=== PATIENT | male | born 1995 | race African-American/Black ===

== ENCOUNTER 2024-10-13 21:35 | Emergency (ER) | payer BC, SELFPAY ==
--- NOTE | ~2024-10-13 | XR_ITS ---
XR finger 5th RT min 2V Ordering provider: Heather Daly MD History: . pain, swelling, eval FB/gas forming . Comparison: None. FINDINGS: BONES: No acute fracture or dislocation. JOINT SPACES: Normal. SOFT TISSUES: No definite radiopaque foreign body is seen. IMPRESSION: No acute osseous abnormality. Reviewed, dictated and finalized at location A.
[2024-10-13 21:43] VITALS: BP 168/87; PULSE 99; RESP 16; TEMP 36.3; O2SAT 98
[2024-10-14 02:42] VITALS: BP 172/109; PULSE 103; RESP 15; O2SAT 97
--- NOTE | 2024-10-14 03:44 | PC.NURSE ---
Pt presents to ED due to swollen and red (R) pinky. Pt states he went to urgent care and was prescribed abx with no relief.
--- OUTSIDE RECORDS SUMMARY | 2024-10-14 04:15 | XMS_ITS | Clinical Summary ---
Author Organization [facility] Address [address] [place] [address] Care Team Providers Care Rotary Soil Stabilizer Operator Name Role Phone Nancy Rae MD Primary Care Provider [phone] Allergies No known active allergies Medications No known medications Active Problems Problem Noted Date Diagnosed Date Routine general medical exam ination at a [facility] care facility 05/13/2020 Assessment & Plan (06/29/2023 3:06 PM PLASTIC MOULD MAKER): Patient uses seatbelt. Blood work was not done. Encouraged exercise on regular basis. Blood work was ordered again. He declined vaccines. Assessment & Plan (06/28/2022 3:20 PM PLASTIC MOULD MAKER): Patient uses seatbelt. He works out on regular basis. He was advised to increase the Cardura in his workup and burn more calories and encouraged to lose weight. Blood work was ordered. Refused flu vaccine. Assessment & Plan (06/25/2021 2:52 PM PLASTIC MOULD MAKER): Patient exercises on regular basis. He does not take flu vaccine. He received Tdap vaccine today. He uses seatbelt. Assessment & Plan (05/13/2020 10:40 AM PLASTIC MOULD MAKER): Discussed seatbelt. Discussed exercise on regular basis for about 30 minutes a day. Discussed safe sex. Will order some blood work. Patient declined influenza vaccine. Patient said that he had HPV vaccine. Gynecomastia 05/13/2020 Assessment & Plan (06/12/2020 10:03 AM PLASTIC MOULD MAKER): Patient most likely has physiological again echo mass T a. He likes surgical removal and will make him a referral to see plastic surgeon for that. Assessment & Plan (05/13/2020 10:39 AM PLASTIC MOULD MAKER): Will obtain ultrasound of the breasts for further evaluation. Will obtain testosterone and prolactin level and TSH . Immunizations Immunization Administration Dates Next Due DTP 03/04/1998 DTaP 02/17/2002,01/25/2001,12/26/1999 ,06/24/1999 HPV, Quadrivalent 02/01/2015 Hep A, Pediatric 07/23/2006,02/17/2002 Hep A, Unspecified 07/23/2006,02/17/2002 Hep B, Adolescent or Pediatric 03/04/1998,1996,1996 HiB 01/25/2001,12/26/1999,06/24/1999 Hib (PRP-T) 01/25/2001,12/26/1999,06/24/1999 IPV 02/17/2002 Influenza, Unspecified 06/29/2023(Deferr ed: Patient Refused),06/29/2022(Deferred: Patient decision),06/25/2021(Deferred: Patient Refused) MMR 01/25/2001,06/24/1999 Meningococcal MCV4P (Menactra) 01/25/2015,2010 OPV 12/26/1999,06/26/1999,03/04/1998 Pneumococcal Conjugate 7-Valent 01/25/2001 Polio, Unspecified 02/17/2002 Tdap 06/25/2021,02/17/2011 Varicella 07/23/2006,09/27/1997 Surgical History Surgery Date Site/Laterality Comments BREAST SURGERY 09/26/2020 Bilateral Excision bilateral gynecomastia COLONOSCOPY 12/17/2021 Family History Medical History Relation Name Comments Seizures Father Hypertension Mother Relation Name Status Comments Father Alive Mother Alive Social History Tobacco Use Types Packs/Day Years Used Date Smoking Tobacco: Never Smokeless Tobacco: Never Alcohol Use Standard Drinks/Week Comments Yes 1 (1 standard drink = 0.6 oz pur e alcohol) socially AUDIT-C Answer Date Recorded Q1: How often do you have a drink containing alc ohol? 2-4 times a month 06/28/2022 Q2: How many drinks containi ng alcohol do you have on a typical day when you are drinking? 1 or 2 06/28/2022 Q3: How often do you have si x or more drinks on one occasion? Never 06/28/2022 PHQ-2 Answer Date Recorded PHQ-2 Total Score (If total score is 3 or more points, staff should administer the PHQ-9) 0 06/28/2022 Personal Safety Answer Date Recorded Getting School Help Needed Not on file 06/28 Sex and Gender Information Value Date Recorded Sex Assigned at Not on file Legal Sex Male 6:21 PM PLASTIC MOULD MAKER Gender Identity Not on file Sexual Orientation Not on file Obstetrics History Last Filed Vital Signs Vital Sign Reading Time Taken Comments Blood Pressure 116/78 06/29/2023 2:09 PM PLASTIC MOULD MAKER Pulse 66 06/29/2023 2:09 PM PLASTIC MOULD MAKER Temperature 36.7 C (98 F) 06/29/2023 2:09 PM PLASTIC MOULD MAKER Respiratory Rate 16 06/29/2023 2:09 PM PLASTIC MOULD MAKER Oxygen Saturation 99% 06/29/2023 2:09 PM PLASTIC MOULD MAKER Inhaled Oxygen Concentration - - Weight 102.3 kg (225 lb 8 oz) 06/29/2023 2:09 PM PLASTIC MOULD MAKER Height 175.3 cm (5' 9 ) 06/29/2023 2:09 PM PLASTIC MOULD MAKER Body Mass Index 33.3 06/29/2023 2:09 PM PLASTIC MOULD MAKER Plan of Treatment Health Maintenance Due Date Last Done Comments Hepatitis C Screening 1996 HPV Vaccines (2 - Male 3-dos e series) 03/01/2015 02/01/2015 Depression Screening 06/28/2023 06/28/2022, 06/25/2021, 06/12/2020, Additional history exists Covid-19 Vaccine (2 - 2023-2 5 season) 2024 09/12/2020 Regular Well Visit/Exam 18-64 06/29/2024, 06/28/2022, 06/25/2021, Additional history exists DTaP/Tdap/Td Vaccine (8 - Td or Tdap) 06/25/2031 06/25/2021, 02/17/2011, 02/17/2002, Additional history exists Hepatitis B Screening Completed 03/04/1998 , 1996, 1996 Pneumococcal vaccine <65 Completed 01/25/2001 Varicella Vaccines Completed 07/23/2006, 09/27/1997 Influenza Vaccine Discontinued Insurance [employer] O[employer] [facility] Care Teams Rotary Soil Stabilizer Operator Relationship Specialty Start Date End Date Nancy Rae MD [facility] [place] [place] [address] PCP - General Internal Medicine 05/08/20
--- OUTSIDE RECORDS SUMMARY | 2024-10-14 04:15 | XMS_ITS | Clinical Summary ---
Author Organization [facility] Address [address] [place] [address] Care Team Providers Care Biopsychologist Name Role Phone Provider, None Primary Care Provider Unavailabl e Medications omeprazole (PriLOSEC) 20 MG CAPSULE DELAYED RELEASE Take 20 mg by mouth. 10/27/2021 Active Immunizations Immunization Administration Dates Next Due DTAP VACCINE 02/17/2002, 1,12/26/1999,06/24 DTP Vaccine 03/04/1998 HIB Vaccine (PRP-T) 01/25/2001,12/26/1999,1998 Hepatitis A Vaccine, Pediatric/adolescent, 2 Dose Schedule 07/23/2006,02/17/2002 Hepatitis A Vaccine,unspecif ied Formulation 07/23/2006 Hepatitis B Vaccine, Pediatric/adolescent 03/04/1998,1996,1996 Hib Vaccine,unspecified Formulation 01/25/2001,0 12/26/1999,06/24/1999 Human Papillomavirus Vaccine (HPV), quadrivalent 02/01/2015 Inactivated Polio Vaccine 02/17/2002 MMR Vaccine 01/25/2001,06/24/1999 Meningococcal Vaccine 01/25/2015,02/17/2011 OPV 12/26/1999,06/26/1999,03/04/1998 Pneumococcal Vaccine Peds - 7 Valent 01/25/2001 Polio Vaccine,unspecified Formulation 02/17/2002 TDAP Vaccine 06/25/2021,02/17/2011 Varicella Vaccine Live 07/23/2006,09/27/1997 Social History Tobacco Use Types Packs/Day Years Used Date Smoking Tobacco: Former Smokeless Tobacco: Never Alcohol Use Standard Drinks/Week Comments Yes 0 (1 standard drink = 0.6 oz pur e alcohol) occasionally Sexually Active Control Partners Comments Yes Sex and Gender Information Value Date Recorded Sex Assigned at Not on file Legal Sex Male 8:05 AM INCOME TAX PREPARER Gender Identity Not on file Sexual Orientation Not on file Last Filed Vital Signs Vital Sign Reading Time Taken Comments Blood Pressure 126/81 12/17/2021 1:36 PM CDT Pulse 81 12/17/2021 1:36 PM CDT Temperature 36.9 C (98.4 F) 12/17/2021 1:36 PM CDT Respiratory Rate 20 07/17/2021 5:17 PM INCOME TAX PREPARER Oxygen Saturation 98% 12/17/2021 1:36 PM CDT Inhaled Oxygen Concentration - - Weight 98.9 kg (218 lb) 12/17/2021 1:36 PM CDT Height 172.7 cm (5' 8 ) 12/17/2021 1:36 PM CDT Body Mass Index 33.15 12/17/2021 1:36 PM CDT Plan of Treatment Health Maintenance Due Date Last Done Comments Hepatitis C Virus (HCV) Screening 1996 Influenza Immunization (#1) 2024 SARS-COV-2 Immunization ( season) 2024 09/12/2020 DTaP/Tdap/Td Immunization (8 - Td or Tdap) 06/25/2031 06/25/2021, 02/17/2011, 02/17/2002, Additional history exists Respiratory Syncytial Virus (RSV) Immunization (Adult) (1 - 1-dose 75+ series) 2071 Hepatitis B Immunization Completed 998, 1996, 1996 Pneumococcal Immunization Combined Aged Out 01/25/2001 No longer eligible based on patient's age to complete this topic Meningococcal Immunization (ACWY) Completed 01/25/2015, 02/17/2011 Human Papillomavirus (HPV) Immunization Discontinued 02/01/2015 Rotavirus Immunization Aged Out No lo nger eligible based on patient's age to complete this topic Insurance [facility] Care Teams Biopsychologist Relationship Specialty Start Date End Date Provider, None [place] PCP - General 07/18/21
--- OUTSIDE RECORDS SUMMARY | 2024-10-14 04:15 | XMS_ITS | Referral Summary ---
Author Organization [facility] Address [address] [place] [address] Care Team Providers Care Infection Prevention Specialist Name Role Phone Nancy Rae MD Primary Care Provider [phone] Allergies No known active allergies Medications No known medications Active Problems Problem Noted Date Diagnosed Date Routine general medical exam ination at a [facility] care facility 05/13/2020 Assessment & Plan (06/29/2023 3:06 PM AIR BAG CURER): Patient uses seatbelt. Blood work was not done. Encouraged exercise on regular basis. Blood work was ordered again. He declined vaccines. Assessment & Plan (06/28/2022 3:20 PM AIR BAG CURER): Patient uses seatbelt. He works out on regular basis. He was advised to increase the Cardura in his workup and burn more calories and encouraged to lose weight. Blood work was ordered. Refused flu vaccine. Assessment & Plan (06/25/2021 2:52 PM AIR BAG CURER): Patient exercises on regular basis. He does not take flu vaccine. He received Tdap vaccine today. He uses seatbelt. Assessment & Plan (05/13/2020 10:40 AM AIR BAG CURER): Discussed seatbelt. Discussed exercise on regular basis for about 30 minutes a day. Discussed safe sex. Will order some blood work. Patient declined influenza vaccine. Patient said that he had HPV vaccine. Gynecomastia 05/13/2020 Assessment & Plan (06/12/2020 10:03 AM AIR BAG CURER): Patient most likely has physiological again echo mass T a. He likes surgical removal and will make him a referral to see plastic surgeon for that. Assessment & Plan (05/13/2020 10:39 AM AIR BAG CURER): Will obtain ultrasound of the breasts for [...] Polio, Unspecified 02/17/2002 Tdap 06/25/2021,02/17/2011 Varicella 07/23/2006,09/27/1997 Social History Tobacco Use Types Packs/Day [...] on file Legal Sex Male 6:21 PM AIR BAG CURER Gender Identity Not on file Sexual Orientation Not on file Last Filed Vital Signs Vital Sign Reading Time Taken Comments Blood Pressure 116/78 06/29/2023 2:09 PM AIR BAG CURER Pulse 66 06/29/2023 2:09 PM AIR BAG CURER Temperature 36.7 C (98 F) 06/29/2023 2:09 PM AIR BAG CURER Respiratory Rate 16 06/29/2023 2:09 PM AIR BAG CURER Oxygen Saturation 99% 06/29/2023 2:09 PM AIR BAG CURER Inhaled Oxygen Concentration - - Weight 102.3 kg (225 lb 8 oz) 06/29/2023 2:09 PM AIR BAG CURER Height 175.3 cm (5' 9 ) 06/29/2023 2:09 PM AIR BAG CURER Body Mass Index 33.3 06/29/2023 2:09 PM AIR BAG CURER Plan of Treatment Not on file [facility] [id number] [employer] [place] Care Teams Infection Prevention Specialist Relationship Specialty Start Date End Date Nancy Rae MD [facility] [place] [address] PCP - General Internal Medicine 05/08/20
--- NOTE | 2024-10-14 04:59 | ED_ITS ---
HPI - Extremity Problem General Chief complaint: Extremity Problem,Nontraumatic Stated complaint: right hand, pinky swelling on abx Time Seen by Provider: 10/14/24 04:02 Source: patient Mode of arrival: ambulatory Limitations: no limitations History of Present Illness HPI Narrative: [id number] Patient presents with right pinky/5th digit swelling. He was given Bactrim as an antibiotic and mupirocin ointment after being seen at an urgent care in [place] on 10/10/2024. No fevers or chills. He feels like the pain and swelling is getting worse at the base of this digit. Related Data Allergies Allergy/AdvReac Type Severity Reaction Status Date / Time No Known Allergies Allergy Verified 10/13/24 21:37 [facility] Past Medical History Medical History (Updated 10/16/24 @ 04:36 by Heather Daly MD) Right hand dominant Social History Social History Occupation/Education: occupation Additional occupation/education comments: Employed; Exam 2 Narrative: GENERAL: Well-appearing, well-nourished, and in no acute distress. HEAD: Normocephalic, atraumatic. EYES: Non injected, non icteric ENT: Nares clear, no rhinorrhea or epistaxis. NECK: Supple. CHEST: Speaking in full sentences. No respiratory distress. HEART: Regular rate and rhythm. . ABDOMEN: Soft, nondistended. EXTREMITIES: Normal range of motion. Brisk capillary refill. Fifth digit held in slight flexion but with no tenderness along the flexor sheath. He is able to demonstrate full flexion and extension of this digit. SKIN: Warm, dry. Erythema and swelling at the base of the right fifth digit between the MCP and PIP. NEURO: No focal deficits. Alert and oriented x3. Sensation intact throughout digit including at the finger tip and along the radial and ulnar side of the digit. PSYCH: Normal mood and affect. Course Vital Signs Vital signs: Vital Signs Temperature 97.3 F L 10/13/24 21:43 Pulse Rate 99 10/13/24 21:43 Respiratory Rate 16 10/13/24 21:43 Blood Pressure 168/87 H 10/13/24 21:43 Pulse Oximetry 98 10/13/24 21:43 Temperature 97.3 F L 10/13/24 21:43 Pulse Rate 71 10/14/24 09:25 Respiratory Rate 18 10/14/24 09:25 Blood Pressure 151/99 H 10/14/24 09:25 Pulse Oximetry 99 10/14/24 09:25 MDM - Extremity (Nontraumatic) MDM Narrative Medical decision making narrative: [id number] Patient presents with pain and swelling at the base of his right 5th digit. In the emergency department he is afebrile with vital signs notable for hypertension. Normocytic anemia with no prior for comparison. CRP and ESR normal. No leukocytosis. Kanavel signs for flexor sheath infection (flexor tenosynovitis) Finger held in slight flexion: Yes Fusiform swelling of affected digit: No Tenderness along flexor tendon sheath: No Pain with passive extension of digit: No Overall, the erythema and swelling is mild. Patient will be given IV dose clindamycin followed by PO course to switch up his antibiotic regimen. He is also given analgesic medication as he has not been taking anything at home for pain. I did advise that if he is not improving to return to the emergency department or he is given the name plastic surgery/hand surgeon. He verifies understanding and is in agreement. Differential Diagnosis Differential diagnosis: Likely cellulitis and other (Herpetic jocelyne, abscess, felon, paronychia; flexor tenosynovitis; osteomyelitis) Lab Data Attestation: I reviewed the patient's lab results. 10/14/24 05:23 10/14/24 05:23 Labs: Lab Results 10/14/24 Range/Units 05:23 WBC 7.3 (4.5-10.0) K/mm3 RBC 5.13 (4.6-6.20) M/mm3 Hgb 13.5 L (14.0-18.0) g/dL Hct 41.6 L (42.0-52.0) % MCV 81.1 (80-100) fl MCH 26.3 (26-34) pg MCHC 32.5 (32-36) g/dl RDW 13.3 (11.5-14.5) % Plt Count 252 (150-375) k/mm3 MPV 10.5 H (7.4-10.4) fl Immature Gran % (Auto) 0.1 (0-0.5) % Neut % (Auto) 56.7 (45.5-73.1) % Lymph % (Auto) 31.7 (18.3-44.2) % [place] % (Auto) 9.9 H (2.6-8.5) % Eos % (Auto) 1.2 (0-4.4) % Baso % (Auto) 0.4 (0.2-1.2) % Lymph # (Auto) 2.30 (0.9-3.2) K/mm3 [place] # (Auto) 0.7 H (0.1-0.6) K/mm3 Eos # (Auto) 0.1 (0-0.3) K/mm3 Baso # (Auto) 0.0 (0.0-0.1) K/mm3 Abs Immat Gran (auto) 0.01 (0.00-0.031) K/mm3 Absolute Neuts (auto) 4.1 (1.3-6.7) K/mm3 Absolute Nucleated RBC 0.000 (0.0-0.012) K/mm3 Nucleated RBC % 0.0 (0.0-0.2) % ESR 13 (0-20) mm/hr PT 13.0 (11.1-14.7) Seconds INR 1.0 APTT 33.1 (22.3-36.8) Seconds Sodium 140 (137-145) mmol/L Potassium 4.4 (3.4-5.0) mmol/L Chloride 103 (98-107) mmol/L Carbon Dioxide 27 (22-30) mmol/L Anion Gap 10 (4-12) mmol/L BUN 13 (9-20) mg/dL Creatinine 1.26 (0.7-1.3) mg/dL Estim Creat Clear Calc 128 ml/min Estimated GFR > 60 (59 - ) Glucose 96 (65-110) mg/dL Calcium 9.6 (8.4-10.2) mg/dL C-Reactive Protein < 0.5 (<1.0) mg/dL Imaging Data Radiologist's impression: IMPRESSION: No acute osseous abnormality. Discharge Plan Discharge Clinical Impression: Infected finger Patient Disposition: Home Condition: Stable Instructions: Antibiotic Form, Cellulitis (ED) Additional Instructions: As we discussed, gave you your 1st dose of an alternative antibiotic IV and the rest will be an oral course prescribed. Acetaminophen/Tylenol (maximum 4000 mg per day) is safe to take with NSAIDs (ibuprofen/Motrin) for pain relief. If not improving this week, call the specialist below to follow up. Return to the emergency department any new, worsening, unmanaged symptoms such as fever greater than 100.4? F, spreading infection/redness, inability to move the finger, etc. Patient Language: Sinhala Prescriptions: New clindamycin HCl [Cleocin HCl] 300 mg capsule 300 mg PO BID 5 Days Qty: 10 0RF acetaminophen 500 mg capsule 1,000 mg PO Q6H PRN (Reason: pain) Qty: 30 0RF ibuprofen 600 mg tablet 600 mg PO TID PRN (Reason: pain) Qty: 30 0RF Follow-up/Referrals: Nabil Lara MD [Physician] - (Plastic surgery/hand surgery) Kyra,Nancy Long MD [Primary Care Provider] - Stand Alone Forms: Work/School Release IP Time of Disposition: 08:47
[2024-10-14 05:15] VITALS: BP 134/88; PULSE 88; RESP 16; O2SAT 99
[2024-10-14 05:28] LABS: Basophils Percent Auto 0.4 % (0.2-1.2); Eosinophils Absolute Auto 0.1 K/mm3 (0-0.3); Eosinophils Percent Auto 1.2 % (0-4.4); Hematocrit 41.6 % (42.0-52.0); Hemoglobin 13.5 g/dL (14.0-18.0); Immature Granulocyte Absolute 0.01 K/mm3 (0.00-0.031); Immature Granulocyte Percent A 0.1 % (0-0.5); Lymphocytes Percent Auto 31.7 % (18.3-44.2); Mean Corpuscular HGB Conc 32.5 g/dl (32-36); Mean Corpuscular Hemoglobin 26.3 pg (26-34); Mean Corpuscular Volume 81.1 fl (80-100); Mean Platelet Volume 10.5 fl (7.4-10.4); Monocytes Absolute Auto 0.7 K/mm3 (0.1-0.6); Monocytes Percent Auto 9.9 % (2.6-8.5); Neutrophils Absolute Auto 4.1 K/mm3 (1.3-6.7); Neutrophils Percent Auto 56.7 % (45.5-73.1); Platelet Count Result 252 k/mm3 (150-375); Red Blood Count 5.13 M/mm3 (4.6-6.20); Red Cell Distribution Width 13.3 % (11.5-14.5); White Blood Count 7.3 K/mm3 (4.5-10.0)
[2024-10-14 05:40] LABS: Partial Thromboplastin Time 33.1 Seconds (22.3-36.8)
[2024-10-14 05:41] LABS: Anion Gap 10 mmol/L (4-12); Blood Urea Nitrogen 13 mg/dL (9-20); CRP < 0.5 mg/dL (<1.0); Calcium 9.6 mg/dL (8.4-10.2); Carbon Dioxide 27 mmol/L (22-30); Chloride 103 mmol/L (98-107); Estimated CRCL calculation 128 ml/min; Estimated Glomerular Filt Rate > 60; Glucose 96 mg/dL (65-110); Potassium 4.4 mmol/L (3.4-5.0); Sodium 140 mmol/L (137-145)
[2024-10-14 05:51] LABS: Erythrocyte Sedimentation Rate 13 mm/hr (0-20)
[2024-10-14] MEDS: HYDROcodone/acetaminophen (*CRX) 5-325 MG TABLET 1 TAB PO (08:45)
[2024-10-14] MEDS: CLINDAMYCIN 600 MG/D5W 50 ML 600 MG/50 ML PIGGYBACK 100 MG IVPB (08:46)
[2024-10-14 09:25] VITALS: BP 151/99; PULSE 71; RESP 18; O2SAT 99
== END 2024-10-14 09:26 | disposition home or self-care (01) ==
PROVIDERS: Emergency Provider Student in an Organized Health Care Education/Training Program; PCP Internal Medicine
DX: L08.9 Local infection of the skin and subcutaneous tissue, unspecified (principal)
CPT/HCPCS: 36415; 73140; 80048; 85025; 85610; 85652; 85730; 86140; 96365; 99284; A9270